=== PATIENT | male | born 1960 | race African-American/Black ===

== ENCOUNTER 2025-10-07 12:30 | Emergency (ER) | payer OTHER, MEDICARE ==
[~2025-10-07] VITALS: Ht 172.7 cm; Wt 78.0 kg
[2025-10-07 12:33] VITALS: O2SAT 96
[2025-10-07] MEDS ORDERED: ACETAMINOPHEN 500MG TABLET PO ONE (13:30)
[2025-10-07 16:27] VITALS: BP 118/77; PULSE 86; RESP 16; TEMP 36.9; O2SAT 97
== END 2025-10-07 16:29 | disposition home or self-care (01) ==
LOC: ER 12:30
DX: S50.02XA Contusion of left elbow, initial encounter (principal); S70.02XA Contusion of left hip, initial encounter; E11.9 Type 2 diabetes mellitus without complications; I10 Essential (primary) hypertension; V49.9XXA Car occupant (driver) (passenger) injured in unspecified traffic accident, initial encounter; Y93.89 Activity, other specified; Y92.89 Other specified places as the place of occurrence of the external cause; Y99.8 Other external cause status
CPT/HCPCS: 73080; 73502; 99284